=== PATIENT | male | born 1965 | race Hispanic/Latino ===

== ENCOUNTER 2023-01-12 18:16 | Emergency (ER) | payer BC, OTHER ==
[~2023-01-12] VITALS: Ht 167.6 cm; Wt 81.6 kg
[2023-01-12 18:36] LABS: BASOPHILS # (AUTO) 0.1 (0.0-0.1); BASOPHILS % 0.7 % (0.0-1.0); EOSINOPHILS # (AUTO) 0.1 (0.0-0.4); EOSINOPHILS % 1.6 % (0.0-6.0); HEMATOCRIT 47.5 % (38.2-49.6); HEMOGLOBIN 15.7 g/dL (14.0-18.0); LYMPHOCYTES # (AUTO) 3.1 (1.0-3.2); LYMPHOCYTES % 41.6 % (18.0-39.1); MEAN CORPUSCULAR HEMOGLOBIN 28.3 pg (28-32); MEAN CORPUSCULAR HGB CONC 33.1 g/dL (31-35); MEAN CORPUSCULAR VOLUME 85.7 fL (81-99); MONOCYTES # (AUTO) 0.7 (0.2-0.8); MONOCYTES % 9.9 % (4.4-11.3); NEUTROPHILS # (AUTO) 3.4 (2.1-6.9); NEUTROPHILS % 46.1 % (38.7-80.0); PLATELET COUNT 250 x10e3/uL (140-360); RED BLOOD COUNT 5.54 x10e6/uL (4.3-5.7); RED CELL DISTRIBUTION WIDTH 14.3 % (11.7-14.4)
[2023-01-12 18:56] LABS: ALANINE AMINOTRANSFERASE 34 IU/L (0-55); ALBUMIN 4.4 g/dL (3.5-5.0); ALBUMIN/GLOBULIN RATIO 1.1 (0.8-2.0); ALKALINE PHOSPHATASE 68 IU/L (40-150); ANION GAP 15.3 mmol/L (8-16); BLOOD UREA NITROGEN 14 mg/dL (7-26); BUN/CREATININE RATIO 17 (6-25); CALCIUM 9.8 mg/dL (8.4-10.2); CARBON DIOXIDE 28 mmol/L (22-29); CHLORIDE 98 mmol/L (98-107); CREATINE KINASE 73 IU/L (30-200); CREATININE, SERUM 0.84 mg/dL (0.72-1.25); GLUCOSE 116 mg/dL (74-118); POTASSIUM 3.3 mmol/L (3.5-5.1); SODIUM 138 mmol/L (136-145)
[2023-01-12 18:56] LABS: AMPHETAMINES SCREEN,URINE NEGATIVE (NEGATIVE); BENZODIAZEPINES SCREEN,URINE NEGATIVE (NEGATIVE); PHENCYCLIDINE SCREEN,URINE NEGATIVE (NEGATIVE)
[2023-01-12 19:07] LABS: CREATINE KINASE MB < 1.00 ng/mL (0-4.3)
== END 2023-01-12 20:25 | disposition home or self-care (01) ==
LOC: ER 18:20
DX: R07.89 Other chest pain (principal); R42 Dizziness and giddiness; X50.9XXA Other and unspecified overexertion or strenuous movements or postures, initial encounter; Y92.89 Other specified places as the place of occurrence of the external cause
CPT/HCPCS: 36415; 71045; 80053; 80307; 82550; 82553; 83690; 83880; 84484; 85025; 85379; 93005; 99284

== ENCOUNTER 2025-02-25 22:05 | Emergency (ER) | payer OTHER ==
[~2025-02-25] VITALS: Ht 167.6 cm; Wt 80.7 kg
[2025-02-25] MEDS: ASPIRIN 325 MG TAB PO ONE (23:42)
[2025-02-26] MEDS: MAGNESIUM/ALUMINUM/SIMETHICONE 30 ML UDC PO ONE (00:36)
[2025-02-26] MEDS: LIDOCAINE VISC 2% SOLN 15 ML UDC PO ONE (00:36)
[2025-02-26] MEDS: BELLADONNA ALK/PHENOBARBITAL 5 ML UDC PO ONE (00:37)
[2025-02-26 00:40] VITALS: PULSE 80; RESP 17
[2025-02-26 00:46] VITALS: BP 163/86; O2SAT 97
== END 2025-02-26 00:48 | disposition home or self-care (01) ==
LOC: FSED 22:21
DX: R07.89 Other chest pain (principal); I10 Essential (primary) hypertension; E11.65 Type 2 diabetes mellitus with hyperglycemia; K21.9 Gastro-esophageal reflux disease without esophagitis
CPT/HCPCS: 71046; 80053; 82553; 83880; 84484; 85025; 85379; 93005; 99284